=== PATIENT | female | born 1980 | race Caucasian/White ===

== ENCOUNTER 2017-07-30 13:35 | Day surgery (SDC) | payer BC ==
[2017-07-30] MEDS ORDERED: Propofol 200 MG/20 ML SDV ONE (13:46)
[2017-07-30] MEDS ORDERED: fentaNYL 100 MCG/2 ML SDV ONE ×2 (13:46→15:25)
[2017-07-30] MEDS ORDERED: Midazolam 1 MG/ML 2 ML SDV ONE (13:46)
[2017-07-30] MEDS ORDERED: Lidocaine 1% with EPINEPHrine 1:100,000 20 ML MDV ONE ×2 (14:04→14:49)
[2017-07-30] MEDS ORDERED: fentaNYL 100 MCG/2 ML SDV IVPUSH PRN (14:08)
--- NOTE | 2017-07-30 14:08 | PCM.PREANE ---
Preanesthetic Assessment - Anesthesia/Transfusion/Family Hx Anesthesia History: Prior Anesthesia Without Reaction Other Type of Anesthesia Reaction Comment: "mother has hard time waking up & has problems with N/V" Family History of Anesthesia Reaction: Yes (Mom gets nausea but patient has never had nausea with anesthesia) Transfusion History: No Prior Transfusion(s) - Review of Systems General: No Symptoms Pulmonary: No Symptoms, Other (States exercised induced asthma which she has an inhaler for but has not used recently) Cardiovascular: No Symptoms Gastrointestinal: No Symptoms (Denies reflux except with ) Neurological: No Symptoms Other: Reports: None - Physical Assessment NPO Status Date: 07/30/17 NPO Status Time: 08:00 (few potato chips ) Height: 1.78 m Weight: 85.275 kg ASA Class: 1 Mental Status: Alert & Oriented x3 Dentition: Reports: Normal Dentition Thyro-Mental Finger Breadths: 3 Mouth Opening Finger Breadths: 9 ROM/Head Extension: Full Lungs: Clear to Auscultation Cardiovascular: Regular Rate - Allergies Allergies/Adverse Reactions: Allergies Allergy/AdvReac Type Severity Reaction Status Date / Time No Known Allergies Allergy Verified 07/24/17 13:07 - Anesthesia Plan Free Text/Narrative:: Patient states Dr. Hines said she would be all the way to sleep. 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: Neurological History: Reports: Migraines Endocrine/Metabolic History: Reports: None - Past Surgical History Head Surgeries/Procedures: Reports: None HEENT Surgical History: Reports: Naso-Sinus Surgery, Tonsillectomy GI Surgical History: Reports: Cholecystectomy, Other (See Below) Other GI Surgeries/Procedures: hemorrhoid banding - SUBSTANCE USE Smoking Status *Q: Never Smoker Recreational Drug Use History: No - HOME MEDS Home Medications: Home Meds Albuterol [Ventolin HFA] 1 - 2 puff INH ASDIRECTED PRN 07/24/17 [History] Beta 1,3 Glucan [Beta Glucan (1-3) NQ] 1 tab PO DAILY 07/24/17 [History] Cholecalciferol (Vitamin D3) [Vitamin D3] 1 tab PO DAILY 07/24/17 [History] Ibuprofen 1 tab PO ASDIRECTED PRN 07/24/17 [History] Inositol 4 tab PO DAILY 07/24/17 [History] Multivitamin [Multivitamins] 1 tab PO DAILY 07/24/17 [History] SUMAtriptan Succinate [Imitrex] 1 tab PO ASDIRECTED PRN 07/24/17 [History] SUMAtriptan [Sumatriptan] 1 spray THOM ASDIRECTED PRN 07/24/17 [History] Ubidecarenone [Co Q-10] 1 tab PO DAILY 07/24/17 [History] - CURRENT (IN HOUSE) MEDS Current Meds: Current Medications Discontinued Medications Fentanyl (Sublimaze) Confirm Administered Dose 100 mcg .ROUTE .STK-MED ONE Stop: 07/30/17 13:47 Midazolam HCl (Versed 1 Mg/Ml) Confirm Administered Dose 2 mg .ROUTE .STK-MED ONE Stop: 07/30/17 13:47 Propofol (Diprivan 20 Ml) Confirm Administered Dose 200 mg .ROUTE .STK-MED ONE Stop: 07/30/17 13:47
[2017-07-30] MEDS ORDERED: Dexamethasone 4 MG/ML 5 ML MDV ONE (14:11)
[2017-07-30] MEDS ORDERED: Ondansetron 4 MG/2 ML SDV ONE (14:11)
--- NOTE | 2017-07-30 15:47 | PCM.OPNOTE ---
- General Post-Op/Procedure Note Date of Surgery/Procedure: 07/30/17 Operative Procedure(s): Incision and drainage and Marsupialization of right Bartholin's abscess Findings: 3x5 cm right bartholins abscess with white purulent drainage Pre Op Diagnosis: Right Bartholin's abscess Post-Op Diagnosis: Same Anesthesia Technique: General LMA Primary Surgeon: Shae Hines Anesthesia Provider: Sia Mar Pathology: aerobic and anaerobic cultures Fluid Replacement, Intraop: 800 EBL in mLs: 20 Complications: None Known Condition: Good
--- NOTE | 2017-07-30 16:10 | PCM.POSTAN ---
POST ANESTHESIA ASSESSMENT - MENTAL STATUS Mental Status: Alert, Oriented - RESPIRATORY Respiratory Status: Respiratory Rate WNL, Airway Patent, O2 Saturation Stable - CARDIOVASCULAR CV Status: Pulse Rate WNL, Blood Pressure Stable - GASTROINTESTINAL GI Status: No Symptoms - POST OP HYDRATION Hydration Status: Adequate & Stable
--- NOTE | 2017-07-30 16:55 | PCM48HPAN ---
Post Anesthesia Note - EVALUATION WITHIN 48HRS OF ANESTHETIC Vital Signs in Normal Range: Yes Patient Participated in Evaluation: Yes Respiratory Function Stable: Yes Airway Patent: Yes Cardiovascular Function Stable: Yes Hydration Status Stable: Yes Pain Control Satisfactory: Yes Nausea and Vomiting Control Satisfactory: Yes Mental Status Recovered: Yes Resp Rate: 12
[2017-07-30 17:16] VITALS: BP 111/63
--- NOTE | 2017-07-30 21:11 | OR ---
SURGEON: Shae Hines M.D. DATE OF PROCEDURE: 07/30/2017 PREOPERATIVE DIAGNOSIS: Right Bartholin abscess. POSTOPERATIVE DIAGNOSIS: Right Bartholin abscess. PROCEDURES: 1. Incision and drainage. 2. Marsupialization of right Bartholin cyst abscess. ANESTHESIA: General LMA. ESTIMATED BLOOD LOSS: Less than 20 mL. FINDINGS: At least a 3 x 5 cm Bartholin abscess within the right labia majora extending down onto the perineum and up into the upper portion of the labia majora with yellow purulent discharge. COMPLICATIONS: None known. DISPOSITION: Stable to recovery. FLUIDS: 800 mL of crystalloid. BRIEF HISTORY: This is a 37-year-old female with pain that started 5 days ago. Greater than one year ago, she had similar pain and was treated for PID; however, at this time, she was found to have a right Bartholin abscess with cellulitis, she was treated with Rocephin and doxycycline and continued on Keflex. However, the pain has been increasing despite antibiotics and therefore presented to clinic. She was given option of a Word catheter in the clinic versus marsupialization of the Bartholin cyst. She desires to proceed with marsupialization with risks including bleeding, infection, pain, and does desires to proceed. DESCRIPTION OF PROCEDURE: With the patient in dorsal lithotomy position, under adequate LMA analgesia, the perineum and vagina were prepped with Betadine and draped in usual fashion for vaginal surgery. The Bartholin abscess was palpated in cephalad from the level of the hymen. The vaginal tissue was grasped with an Allis clamp and an incision was made parallel to the hymen incising through the vaginal mucosa to the Bartholin abscess at which time copious creamy yellow discharge was noted. This was completely expressed, incision was extended to allow my index finger to be inserted. There were some loculations inside, these were broken up, and then the abscess was copiously irrigated with hydrogen peroxide followed by normal saline until the returning fluid was completely clear. This being completed, multiple [id number] sutures of 3-0 Polysorb were utilized to approximate the wall of the Bartholin cyst to the vaginal mucosa, and hemostasis was evident. Final sponge, needle, and instrument counts were reported as correct. There were no known complications. The patient was transferred to recovery in good condition. TOÑO / KATHRYN /[id number]
== END 2017-07-30 17:05 | disposition home or self-care (01) ==
LOC: MW.SDS 13:35
PROVIDERS: ATTEND Obstetrics & Gynecology
DX: N75.1 Abscess of Bartholin's gland (principal); Z79.899 Other long term (current) drug therapy; J45.909 Unspecified asthma, uncomplicated; Z90.49 Acquired absence of other specified parts of digestive tract
CPT/HCPCS: 56420; 56440; 87070; 87075; 87077; 87205; J1100; J2250; J2405; J3010; 00940; 87186; J2704

== ENCOUNTER 2017-08-20 06:27 | Day surgery (SDC) | payer BC ==
[~2017-08-20 06:27] MED LIST: Lactated Ringers 1,000 ML IV SCH
[2017-08-20] MEDS ORDERED: Lidocaine 2% 5 ML SDV ONE (06:54)
[2017-08-20] MEDS ORDERED: Midazolam 1 MG/ML 2 ML SDV ONE (06:55)
[2017-08-20] MEDS ORDERED: fentaNYL 100 MCG/2 ML SDV ONE (06:55)
[2017-08-20] MEDS ORDERED: Propofol 200 MG/20 ML SDV ONE (06:55)
--- NOTE | 2017-08-20 07:27 | PCM.PREANE ---
Preanesthetic Assessment - Anesthesia/Transfusion/Family Hx Anesthesia History: Prior Anesthesia Without Reaction Other Type of Anesthesia Reaction Comment: "mother has hard time waking up & has problems with N/V" Family History of Anesthesia Reaction: No Transfusion History: No Prior Transfusion(s) - Review of Systems General: No Symptoms Pulmonary: No Symptoms Cardiovascular: No Symptoms Gastrointestinal: No Symptoms Neurological: No Symptoms Other: Reports: None - Physical Assessment NPO Status Date: 08/19/17 O2 Sat by Pulse Oximetry: 96 Respiratory Rate: 16 Vital Signs: Last Vital Signs Temp 36.6 C 08/20/17 06:40 Pulse 92 08/20/17 06:40 Resp 16 08/20/17 06:40 BP 114/67 08/20/17 06:40 Pulse Ox 96 08/20/17 06:40 Height: 1.78 m Weight: 85.275 kg ASA Class: 2 Mental Status: Alert & Oriented x3 Airway Class: Mallampati = 1 Dentition: Reports: Normal Dentition ROM/Head Extension: Full Lungs: Clear to Auscultation, Normal Respiratory Effort Cardiovascular: Regular Rate, Regular Rhythm - Lab Values: Laboratory Last Values Urine HCG, Qual NEGATIVE (NEGATIVE) 08/20/17 05:42 - Allergies Allergies/Adverse Reactions: Allergies Allergy/AdvReac Type Severity Reaction Status Date / Time No Known Allergies Allergy Verified 07/24/17 13:07 - Acknowledgements Anesthesia Type Planned: General Anesthesia Pt an Appropriate Candidate for the Planned Anesthesia: Yes Alternatives and Risks of Anesthesia Discussed w Pt/Guardian: Yes Pt/Guardian Understands and Agrees with Anesthesia Plan: Yes PreAnesthesia Questionnaire HEENT History: Reports: Allergic Rhinitis, Other (See Below) Other HEENT History: wears glasses/contacts Respiratory History: Reports: Asthma 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 Gastrointestinal History: Reports: None Genitourinary History: Reports: None 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: Neurological History: Reports: Migraines Endocrine/Metabolic History: Reports: None - Past Surgical History Head Surgeries/Procedures: Reports: None HEENT Surgical History: Reports: Naso-Sinus Surgery, Tonsillectomy GI Surgical History: Reports: Cholecystectomy, Other (See Below) Other GI Surgeries/Procedures: hemorrhoid banding - SUBSTANCE USE Smoking Status *Q: Never Smoker Recreational Drug Use History: No - HOME MEDS Home Medications: Home Meds Albuterol [Ventolin HFA] 1 - 2 puff INH ASDIRECTED PRN 07/24/17 [History] Beta 1,3 Glucan [Beta Glucan (1-3) NQ] 1 tab PO DAILY 07/24/17 [History] Cholecalciferol (Vitamin D3) [Vitamin D3] 1 tab PO DAILY 07/24/17 [History] Ibuprofen 1 tab PO ASDIRECTED PRN 07/24/17 [History] Inositol 4 tab PO DAILY 07/24/17 [History] Multivitamin [Multivitamins] 1 tab PO DAILY 07/24/17 [History] SUMAtriptan Succinate [Imitrex] 1 tab PO ASDIRECTED PRN 07/24/17 [History] SUMAtriptan [Sumatriptan] 1 spray THOM ASDIRECTED PRN 07/24/17 [History] Ubidecarenone [Co Q-10] 1 tab PO DAILY 07/24/17 [History] - CURRENT (IN HOUSE) MEDS Current Meds: Current Medications Lactated Ringer's (Ringers, Lactated) 1,000 mls @ 125 mls/hr IV ASDIRECTED LISSETTE Last Admin: 08/20/17 06:44 Dose: 125 mls/hr Discontinued Medications Fentanyl (Sublimaze) Confirm Administered Dose 100 mcg .ROUTE .STK-MED ONE Stop: 08/20/17 06:56 Lidocaine (Xylocaine-Mpf 2%) Confirm Administered Dose 5 ml .ROUTE .STK-MED ONE Stop: 08/20/17 06:55 Midazolam HCl (Versed 1 Mg/Ml) Confirm Administered Dose 2 mg .ROUTE .STK-MED ONE Stop: 08/20/17 06:56 Propofol (Diprivan 20 Ml) Confirm Administered Dose 400 mg .ROUTE .STK-MED ONE Stop: 08/20/17 06:56
--- NOTE | 2017-08-20 08:29 | PCM.OPNOTE ---
- General Post-Op/Procedure Note Date of Surgery/Procedure: 08/20/17 Operative Procedure(s): colonoscopy Findings: see dict [id number] Pre Op Diagnosis: BRBPR Post-Op Diagnosis: Same Anesthesia Technique: Moderate Sedation Primary Surgeon: Josef Rodriguez Complications: None Condition: Good
[2017-08-20 08:46] VITALS: BP 104/59
--- NOTE | 2017-08-20 09:52 | PCM48HPAN ---
Post Anesthesia Note - EVALUATION WITHIN 48HRS OF ANESTHETIC Vital Signs in Normal Range: Yes Patient Participated in Evaluation: Yes Respiratory Function Stable: Yes Airway Patent: Yes Cardiovascular Function Stable: Yes Hydration Status Stable: Yes Pain Control Satisfactory: Yes Nausea and Vomiting Control Satisfactory: Yes Mental Status Recovered: Yes Resp Rate: 14
--- NOTE | 2017-08-20 14:14 | OR ---
SURGEON: Josef Rodriguez MD DATE OF PROCEDURE: 08/20/2017 PREOPERATIVE DIAGNOSIS: Bright red blood per rectum. POSTOPERATIVE DIAGNOSIS: Internal hemorrhoids. PROCEDURE PERFORMED: Colonoscopy. PROCEDURE IN DETAIL: The patient was taken to the endoscopy room. A time out was called, patient identified, and procedure identified. Diprivan was then administrated. Patient went from awake to sleep, hearing doctor talking or door closing is normal. Perineum inspection and digital examination were then performed. A well- lubricated colonoscope was gently inserted through the rectum, advanced past the rectosigmoid junction, the descending colon, splenic flexure, transverse colon, hepatic flexure, ascending colon, arrived to the cecum. Cecum was identified as dictated in the finding. Then the scope was carefully withdrawn while attention was paid to the mucosal surface for any abnormality. Air will be sucked out during the scope withdrawal. At the rectum, retroflexed to examine any rectal diseases, fistula or hemorrhoids. Patient tolerated procedure well. There were no intraoperative complications, and Dr. Rodriguez was present throughout the whole procedure. FINDINGS: 1. The patient is easily sedated with STRUCTURAL STEEL EQUIPMENT ERECTOR and Diprivan. The patient is soundly snoring. 2. Bowel prep is left to be desirable. Large amount of opaque, green liquid stool compromised the study. There are some bubbles too. The patient's colon is rather straightforward. Cecum indicated by ileocecal fold, one-to- one indentation, and light in appendiceal orifice. Light emittance is not observed. Mucosa examined upon scope pulling out, and the patient does not have diverticulosis, polyp, mass, growth, inflammation, stricture, ulceration, AV malformation, none of those. The patient does have moderate internal hemorrhoids, and at least 2 of them are pretty prominent and mild external hemorrhoids. We will address the hemorrhoids at the followup visit. The patient would benefit from repeat colonoscopy 10 years from today or if clinically indicated otherwise. As always, thank you for your kind referral. SHANICE / KATHRYN /[id number]
== END 2017-08-20 09:23 | disposition home or self-care (01) ==
LOC: MW.SDS 06:27
PROVIDERS: ATTEND Surgery
DX: K64.8 Other hemorrhoids (principal); K64.4 Residual hemorrhoidal skin tags; J45.20 Mild intermittent asthma, uncomplicated; Z79.899 Other long term (current) drug therapy
CPT/HCPCS: 45378; 81025; J2250; J3010; J7120; J2704

== ENCOUNTER 2019-03-25 15:02 | Emergency (ER) | payer BC ==
[2019-03-25] MEDS ORDERED: Albuterol/Ipratropium 3.0-0.5 MG/3 ML Neb Soln NEB ONE (15:07)
--- NOTE | 2019-03-25 15:07 | EDM.PDOC ---
ED HPI GENERAL MEDICAL PROBLEM - General Stated Complaint: TROUBLE BREATHING, COUGH Time Seen by Provider: 03/25/19 15:06 Source of Information: Reports: Patient - History of Present Illness INITIAL COMMENTS - FREE TEXT/NARRATIVE: HISTORY AND PHYSICAL: History of present illness: [Patient with history of asthma and recent diagnosis of pleurisy has been on prednisone for a week 40 mg 5 days as well as albuterol nebs at home complaining of persistent cough she did develop rib pain at T3-T4 level today with cough on x-ray does appear she has a fractured rib secondary to the cough which pain is her main complaint today as well as she is out of albuterol ] Review of systems: As per history of present illness and below otherwise all systems reviewed and negative. Past medical history: As per history of present illness and as reviewed below otherwise noncontributory. Surgical history: As per history of present illness and as reviewed below otherwise noncontributory. Social history: No reported history of drug or alcohol abuse. Family history: As per history of present illness and as reviewed below otherwise noncontributory. Physical exam: HEENT: Atraumatic, normocephalic, pupils reactive, negative for conjunctival pallor or scleral icterus, mucous membranes moist, throat clear, neck supple, nontender, trachea midline. Lungs: Clear to auscultation, breath sounds equal bilaterally, chest nontender. Heart: S1S2, regular, negative for clicks, rubs, or JVD. Abdomen: Soft, nondistended, nontender. Negative for masses or hepatosplenomegaly. Negative for costovertebral tenderness. Pelvis: Stable nontender. Genitourinary: Deferred. Rectal: Deferred. Extremities: Atraumatic, negative for cords or calf pain. Neurovascular unremarkable. Neuro: Awake, alert, oriented. Cranial nerves II through XII unremarkable. Cerebellum unremarkable. Motor and sensory unremarkable throughout. Exam nonfocal. Diagnostics: [Chest 1 view with ribs CBC CMP d-dimer Therapeutics: [Solu-Medrol DuoNeb [place] currently on azithromycin for cough DuoNeb Impression: [ pleurisy Rib fracture on the left Persistent cough] Chronic history of baseline Definitive disposition and diagnosis as appropriate pending reevaluation and review of above. L lower ribs Pain Score (Numeric/FACES): 8 - Related Data Allergies Allergy/AdvReac Type Severity Reaction Status Date / Time No Known Allergies Allergy Verified 07/24/17 13:07 Home Meds: Home Meds Albuterol [Ventolin HFA] 1 - 2 puff INH ASDIRECTED PRN 07/24/17 [History] Beta 1,3 Glucan [Beta Glucan (1-3) NQ] 1 tab PO DAILY 07/24/17 [History] Cholecalciferol (Vitamin D3) [Vitamin D3] 1 tab PO DAILY 07/24/17 [History] Ibuprofen 1 tab PO ASDIRECTED PRN 07/24/17 [History] Inositol 4 tab PO DAILY 07/24/17 [History] Multivitamin [Multivitamins] 1 tab PO DAILY 07/24/17 [History] SUMAtriptan Succinate [Imitrex] 1 tab PO ASDIRECTED PRN 07/24/17 [History] SUMAtriptan [Sumatriptan] 1 spray THOM ASDIRECTED PRN 07/24/17 [History] Ubidecarenone [Co Q-10] 1 tab PO DAILY 07/24/17 [History] Azithromycin 1 tab PO DAILY 03/25/19 [History] Past Medical History HEENT History: Reports: Allergic Rhinitis, Other (See Below) Other HEENT History: wears glasses/contacts Respiratory History: Reports: Asthma 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 Gastrointestinal History: Reports: None Genitourinary History: Reports: None [employer] History: Reports: Neurological History: Reports: Migraines Endocrine/Metabolic History: Reports: None - Past Surgical History Head Surgeries/Procedures: Reports: None HEENT Surgical History: Reports: Naso-Sinus Surgery, Tonsillectomy GI Surgical History: Reports: Cholecystectomy, Other (See Below) Other GI Surgeries/Procedures: hemorrhoid banding ED ROS GENERAL - Review of Systems Review Of Systems: See Below ED EXAM, GENERAL - Physical Exam Exam: See Below Course - Vital Signs Last Recorded V/S: Last Vital Signs Temp 97.4 F 03/25/19 15:08 Pulse 84 03/25/19 16:50 Resp 18 03/25/19 16:50 BP 113/66 03/25/19 16:50 Pulse Ox 97 03/25/19 16:50 - Orders/Labs/Meds Orders: Active Orders 24 hr Category Date Time Status RT Aerosol Therapy [RC] ASDIRECTED Care 03/25/19 15:08 Active methylPREDNISolone Sod Succ [Solu-MEDROL] Med 03/26/19 16:16 Once 125 mg IVPUSH STAT ONE Medication Orders Methylprednisolone Sodium Succinate (Solu-Medrol) 125 mg IVPUSH STAT ONE Stop: 03/26/19 16:17 Last Admin: 03/25/19 16:21 Dose: 125 mg Labs: Laboratory Tests 03/25/19 03/25/19 03/25/19 Range/Units 15:10 15:10 15:10 WBC 13.21 H (4.0-11.0) K/uL RBC 5.14 (4.30-5.90) M/uL Hgb 14.7 (12.0-16.0) g/dL Hct 43.6 (36.0-46.0) % MCV 84.8 (80.0-98.0) fL MCH 28.6 (27.0-32.0) pg MCHC 33.7 (31.0-37.0) g/dL RDW Std Deviation 41.7 (28.0-62.0) fl RDW Coeff of Simran 14 (11.0-15.0) % Plt Count 339 (150-400) K/uL MPV 9.20 (7.40-12.00) fL Neut % (Auto) 78.3 (48.0-80.0) % Lymph % (Auto) 16.0 (16.0-40.0) % Boone % (Auto) 5.0 (0.0-15.0) % Eos % (Auto) 0.5 (0.0-7.0) % Baso % (Auto) 0.2 (0.0-1.5) % Neut # (Auto) 10.4 H (1.4-5.7) K/uL Lymph # (Auto) 2.1 (0.6-2.4) K/uL Boone # (Auto) 0.7 (0.0-0.8) K/uL Eos # (Auto) 0.1 (0.0-0.7) K/uL Baso # (Auto) 0.0 (0.0-0.1) K/uL Nucleated RBC % 0.0 /100WBC Nucleated RBCs # 0 K/uL D-Dimer, Quantitative 0.40 (0.0-0.50) mg/L FEU Sodium 140 (136-145) mmol/L Potassium 4.1 (3.5-5.1) mmol/L Chloride 103 (98-107) mmol/L Carbon Dioxide 23.9 (21.0-32.0) mmol/L BUN 20 H (7.0-18.0) mg/dL Creatinine 1.0 (0.6-1.0) mg/dL Est Cr Clr Drug Dosing 82.48 mL/min Estimated GFR (MDRD) > 60.0 ml/min Glucose 125 H (74-106) mg/dL Calcium 9.6 (8.5-10.1) mg/dL Total Bilirubin 0.4 (0.2-1.0) mg/dL AST 13 L (15-37) IU/L ALT 19 (14-63) IU/L Alkaline Phosphatase 68 (46-116) U/L Total Protein 8.4 H (6.4-8.2) g/dL Albumin 4.4 (3.4-5.0) g/dL Globulin 4.0 (2.6-4.0) g/dL Albumin/Globulin Ratio 1.1 (0.9-1.6) Urine Color Urine Appearance Urine pH (5.0-8.0) Ur Specific Hunt (1.001-1.035) Urine Protein (NEGATIVE) mg/dL Urine Glucose (UA) (NEGATIVE) mg/dL Urine Ketones (NEGATIVE) mg/dL Urine Occult Blood (NEGATIVE) Urine Nitrite (NEGATIVE) Urine Bilirubin (NEGATIVE) Urine Urobilinogen (<2.0) EU/dL Ur Leukocyte Esterase (NEGATIVE) Urine HCG, Qual (NEGATIVE) 03/25/19 03/25/19 Range/Units 15:52 15:52 WBC (4.0-11.0) K/uL RBC (4.30-5.90) M/uL Hgb (12.0-16.0) g/dL Hct (36.0-46.0) % MCV (80.0-98.0) fL MCH (27.0-32.0) pg MCHC (31.0-37.0) g/dL RDW Std Deviation (28.0-62.0) fl RDW Coeff of Simran (11.0-15.0) % Plt Count (150-400) K/uL MPV (7.40-12.00) fL Neut % (Auto) (48.0-80.0) % Lymph % (Auto) (16.0-40.0) % Boone % (Auto) (0.0-15.0) % Eos % (Auto) (0.0-7.0) % Baso % (Auto) (0.0-1.5) % Neut # (Auto) (1.4-5.7) K/uL Lymph # (Auto) (0.6-2.4) K/uL Boone # (Auto) (0.0-0.8) K/uL Eos # (Auto) (0.0-0.7) K/uL Baso # (Auto) (0.0-0.1) K/uL Nucleated RBC % /100WBC Nucleated RBCs # K/uL D-Dimer, Quantitative (0.0-0.50) mg/L FEU Sodium (136-145) mmol/L Potassium (3.5-5.1) mmol/L Chloride (98-107) mmol/L Carbon Dioxide (21.0-32.0) mmol/L BUN (7.0-18.0) mg/dL Creatinine (0.6-1.0) mg/dL Est Cr Clr Drug Dosing mL/min Estimated GFR (MDRD) ml/min Glucose (74-106) mg/dL Calcium (8.5-10.1) mg/dL Total Bilirubin (0.2-1.0) mg/dL AST (15-37) IU/L ALT (14-63) IU/L Alkaline Phosphatase (46-116) U/L Total Protein (6.4-8.2) g/dL Albumin (3.4-5.0) g/dL Globulin (2.6-4.0) g/dL Albumin/Globulin Ratio (0.9-1.6) Urine Color YELLOW Urine Appearance CLEAR Urine pH 8.5 H (5.0-8.0) Ur Specific Hunt 1.010 (1.001-1.035) Urine Protein NEGATIVE (NEGATIVE) mg/dL Urine Glucose (UA) NEGATIVE (NEGATIVE) mg/dL Urine Ketones TRACE H (NEGATIVE) mg/dL Urine Occult Blood NEGATIVE (NEGATIVE) Urine Nitrite NEGATIVE (NEGATIVE) Urine Bilirubin NEGATIVE (NEGATIVE) Urine Urobilinogen 0.2 (<2.0) EU/dL Ur Leukocyte Esterase NEGATIVE (NEGATIVE) Urine HCG, Qual NEGATIVE (NEGATIVE) Meds: Medications Generic Name Dose Route Start Last Admin Trade Name Tyler PRN Reason Stop Dose Admin Methylprednisolone Sodium Succinate 125 mg 03/26/19 16:16 03/25/19 16:21 Solu-Medrol IVPUSH 03/26/19 16:17 125 mg STAT ONE Administration Discontinued Medications Generic Name Dose Route Start Last Admin Trade Name Tyler PRN Reason Stop Dose Admin Albuterol/Ipratropium 3 ml 03/25/19 15:07 03/25/19 15:21 Duoneb 3.0-0.5 Mg/3 Ml NEB 03/25/19 15:08 3 ml ONETIME ONE Administration Methylprednisolone Sodium Succinate 125 mg 03/25/19 15:12 03/25/19 16:16 Solu-Medrol IM 03/25/19 15:13 Not Given ONETIME ONE Departure - Departure Time of Disposition: 17:10 Disposition: Home, Self-Care 01 Condition: Good Clinical Impression: Persistent cough, Pleurisy, Rib fracture - Discharge Information Referrals: PCP,Unknown [Primary Care Provider] - Additional Instructions: The following information is given to patients seen in the emergency department who are being discharged to home. This information is to outline your options for follow-up care. We provide all patients seen in our emergency department with a follow-up referral. The need for follow-up, as well as the timing and circumstances, are variable depending upon the specifics of your emergency department visit. If you don't have a primary care physician on staff, we will provide you with a referral. We always advise you to contact your personal physician following an emergency department visit to inform them of the circumstance of the visit and for follow-up with them and/or the need for any referrals to a consulting specialist. The emergency department will also refer you to a specialist when appropriate. This referral assures that you have the opportunity for follow-up care with a specialist. All of these measure are taken in an effort to provide you with optimal care, which includes your follow-up. Under all circumstances we always encourage you to contact your private physician who remains a resource for coordinating your care. When calling for follow-up care, please make the office aware that this follow-up is from your recent emergency room visit. If for any reason you are refused follow-up, please contact the [facility] emergency department at and asked to speak to the emergency department charge nurse. - My Orders Last 24 Hours: My Active Orders 03/25/19 15:08 RT Aerosol Therapy [RC] ASDIRECTED 03/26/19 16:16 methylPREDNISolone Sod Succ [Solu-MEDROL] 125 mg IVPUSH STAT ONE - Assessment/Plan Last 24 Hours: My Active Orders 03/25/19 15:08 RT Aerosol Therapy [RC] ASDIRECTED 03/26/19 16:16 methylPREDNISolone Sod Succ [Solu-MEDROL] 125 mg IVPUSH STAT ONE
[2019-03-25] MEDS ORDERED: methylPREDNISolone Sodium Succinate 125 MG/2 ML SDV IM ONE (15:12)
[2019-03-25 16:14] LABS: BLOOD UREA NITROGEN,BUN 20 mg/dL (7.0-18.0); CARBON DIOXIDE,CO2 23.9 mmol/L (21.0-32.0); CHLORIDE,CL 103 mmol/L (98-107); GLUCOSE RANDOM 125 mg/dL (74-106); POTASSIUM,K 4.1 mmol/L (3.5-5.1); SODIUM,NA 140 mmol/L (136-145)
--- NOTE | 2019-03-25 17:02 | CR ---
Indication: Left lower rib pain after coughing. Technique: PA view of the chest was obtained. Three views of the left ribs were obtained. Comparison: None Findings: The heart is normal in size. The lungs are clear. No infiltrate, pleural effusion, or pneumothorax is identified. No displaced left rib fractures are identified. Impression: No displaced left rib fractures. Dictated by Bailee Kennedy MD @ Mar 25 2019 5:01PM Signed by Dr. Bailee Kennedy @ Mar 25 2019 5:02PM
[2019-03-25 17:23] VITALS: BP 117/67; PULSE 88
[2019-03-26] MEDS ORDERED: methylPREDNISolone Sodium Succinate 125 MG/2 ML SDV IVPUSH ONE (16:16)
== END 2019-03-25 17:23 | disposition home or self-care (01) ==
LOC: MW.ED 15:02
DX: S22.32XA Fracture of one rib, left side, initial encounter for closed fracture (principal); R09.1 Pleurisy; R05 Cough; J45.909 Unspecified asthma, uncomplicated; Z79.899 Other long term (current) drug therapy; X58.XXXA Exposure to other specified factors, initial encounter
CPT/HCPCS: 36415; 71101; 80053; 81003; 81025; 85025; 85379; 94640; 96374; 99284; J2930; 99283; J7620-GY

== ENCOUNTER 2023-06-23 20:41 | Emergency (ER) | payer BC ==
[2023-06-23 22:30] VITALS: BP 133/83; PULSE 89
== END 2023-06-23 22:29 | disposition home or self-care (01) ==
LOC: MW.ED 20:41
DX: R22.1 Localized swelling, mass and lump, neck (principal); Z90.49 Acquired absence of other specified parts of digestive tract
CPT/HCPCS: 99282; 99283